=== PATIENT | male | born 1995 | race Caucasian/White ===

== ENCOUNTER 2021-02-01 23:31 | Emergency (ER) | payer BC ==
[~2021-02-01] VITALS: Ht 177.8 cm; Wt 79.4 kg
[2021-02-01 23:31] VITALS: BP 139/77
[2021-02-02] MEDS ORDERED: IBUP-1957 PO (00:07)
== END 2021-02-02 00:24 | disposition home or self-care (01) ==
LOC: ER 23:31
DX: R20.2 Paresthesia of skin (principal)